=== PATIENT | male | born 1995 | race American Indian/Alaskan Native ===

== ENCOUNTER 2020-07-24 16:15 | Emergency (ER) | payer SELFPAY ==
[2020-07-24 16:27] VITALS: BP 118/88
--- NOTE | 2020-07-24 16:31 | Emergency Department Report ---
Blank Doc - Documentation Documentation: 25-year-old male that presents with abdominal pain with n/.v This initial assessment/diagnostic orders/clinical plan/treatment(s) is/are subject to change based on patient's health status, clinical progression and re- assessment by fellow clinical providers in the ED. Further treatment and workup at subsequent clinical providers discretion. Patient/guardians urged not to elope from the ED as their condition may be serious if not clinically assessed and managed. Initial orders include: 1- Patient sent to [facility] for further evaluation and treatment 2- labs 3- UA
[2020-07-24 17:16] LABS: Basophils # (Auto) 0.1 K/mm3 (0.0-0.1); Basophils % (Auto) 1.7 % (0.0-1.8); Eosinophils # (Auto) 0.2 K/mm3 (0.0-0.4); Eosinophils % (Auto) 3.6 % (0.0-4.3); Hematocrit 46.1 % (35.5-45.6); Hemoglobin 15.6 gm/dl (11.8-15.2); Lymphocytes # (Auto) 1.8 K/mm3 (1.2-5.4); Lymphocytes % (Auto) 38.1 % (13.4-35.0); Mean Corpuscular HGB Conc 34 % (32-34); Mean Corpuscular Volume 94 fl (84-94); Monocytes # (Auto) 0.4 K/mm3 (0.0-0.8); Monocytes % (Auto) 8.9 % (0.0-7.3); Platelet Count 331 K/mm3 (140-440); Red Blood Count 4.91 M/mm3 (3.65-5.03); Red Cell Distribution Width 13.7 % (13.2-15.2)
[2020-07-24 17:40] LABS: Alanine Aminotransferase 15 units/L (7-56); Albumin 4.7 g/dL (3.9-5); BUN/Creatinine Ratio 11; Blood Urea Nitrogen 9 mg/dL (9-20); Hemolysis Index 19
--- NOTE | 2020-07-25 00:04 | XRay Report ---
CHEST PA AND LATERAL VIEWS INDICATION: MAIN. COMPARISON: None FINDINGS: Support devices: None Heart: Normal Lungs/Pleura: No acute pulmonary or pleural findings. IMPRESSION: 1. No significant abnormality. Signer Name: Kyle Juarez MD Signed: 07/25/2020 12:00 AM Workstation Name: [id number]
[2020-07-25] MEDS ORDERED: SODIUM CHLORIDE 0.9% 1000 ML 1,000 ML IV ONE (00:24)
--- NOTE | 2020-07-25 00:27 | Emergency Department Report ---
ED N/V/D HPI - General Chief complaint: Nausea/Vomiting/Diarrhea Stated complaint: ABD PAIN/VOMITING/FATIGUE PUI?: No Time Seen by Provider: 07/24/20 16:23 Source: patient Mode of arrival: Ambulatory Limitations: No Limitations - History of Present Illness Initial comments: Patient is a 25-year-old male who presents emergency room with multiple complaints. Patient complains of headache, abdominal pain, shortness of breath, fatigue, poor appetite, nausea and vomiting. Patient states he has not had any food down for 1 week. Patient states his symptoms started a week ago. Patient states his symptoms are worsening. Patient has vomitus. Patient a recent bowel movement. Patient states he has not been able to eat or drink so he can have a bowel movement. Patient states his abdominal pain is a 6 out of 10. He states is worse with movement or vomiting and palpation. Patient states his abdominal pain is better with rest. Patient states his fatigue is worsening. Patient states he is see any other health care provider for these problems. Patient denies fever and chills. Patient denies dysuria. Patient denies chest pain. Patient states that his shortness of breath has resolved. Patient denies recent travel. Patient denies recent international travel. Patient denies exposure to the novel coronavirus. Patient denies sick contacts. Patient denies fever and chills. Patient denies cough. Patient denies diarrhea. Patient denies coming in contact with anybody with symptoms of the novel coronavirus. MD complaint: nausea, vomiting, abdominal pain -: Sudden Description of Vomiting: food contents, watery Associated Abdominal Pain: Yes Location: diffuse Radiation: none Severity: severe Pain Scale: 6 Quality: stabbing, aching Consistency: constant Improves with: rest Worsens with: vomiting, movement Associated Symptoms: headaches, loss of appetite, malaise, nausea/vomiting. denies: myalgias, chest pain, cough, diaphoresis, fever/chills - Related Data Previous Rx's Medication Instructions Recorded Last Taken Type Ciprofloxacin HCl [Ciprofloxacin 500 mg PO Q12HR 10 Days #20 tab 07/25/20 Unknown Rx TAB] Ondansetron [Zofran Odt] 4 mg PO Q6HR PRN #25 tab.rapdis 07/25/20 Unknown Rx Allergies Allergy/AdvReac Type Severity Reaction Status Date / Time No Known Allergies Allergy Unverified 07/24/20 16:27 ED Review of Systems ROS: Stated complaint: ABD PAIN/VOMITING/FATIGUE Other details as noted in HPI Constitutional: malaise. denies: chills, fever Eyes: denies: eye pain, eye discharge, vision change ENT: denies: ear pain, throat pain Respiratory: shortness of breath. denies: cough, wheezing Cardiovascular: denies: chest pain, palpitations Endocrine: no symptoms reported Gastrointestinal: abdominal pain, nausea, vomiting, constipation. denies: diarr hea Genitourinary: denies: urgency, dysuria Musculoskeletal: denies: back pain, joint swelling, arthralgia Skin: denies: rash, lesions Neurological: headache. denies: weakness, paresthesias Psychiatric: denies: anxiety, depression Hematological/Lymphatic: denies: easy bleeding, easy bruising ED Past Medical Hx - Past Medical History Previous Medical History?: No - Surgical History Past Surgical History?: No - Family History Family history: no significant - Social History Smoking Status: Never Smoker Substance Use Type: None - Medications Home Medications: Home Medications Medication Instructions Recorded Confirmed Last Taken Type Ciprofloxacin HCl [Ciprofloxacin 500 mg PO Q12HR 10 Days #20 tab 07/25/20 Unknown Rx TAB] Ondansetron [Zofran Odt] 4 mg PO Q6HR PRN #25 tab.rapdis 07/25/20 Unknown Rx ED Physical Exam - General Limitations: No Limitations General appearance: alert, in no apparent distress - Head Head exam: Present: atraumatic, normocephalic - Eye Eye exam: Present: normal appearance - ENT ENT exam: Present: mucous membranes moist - Neck Neck exam: Present: normal inspection - Respiratory Respiratory exam: Present: normal lung sounds bilaterally. Absent: respiratory distress - Cardiovascular Cardiovascular Exam: Present: regular rate, normal rhythm. Absent: systolic murmur, diastolic murmur, rubs, gallop - GI/Abdominal GI/Abdominal exam: Present: soft, tenderness, normal bowel sounds - Rectal Rectal exam: Present: deferred - Extremities Exam Extremities exam: Present: normal inspection - Back Exam Back exam: Present: normal inspection - Neurological Exam Neurological exam: Present: alert, oriented X3 - Psychiatric Psychiatric exam: Present: normal affect, normal mood - Skin Skin exam: Present: warm, dry, intact, normal color. Absent: rash ED Course Vital Signs 07/24/20 16:25 Temperature 98.3 F Pulse Rate 66 Respiratory 18 Rate Blood Pressure 118/88 O2 Sat by Pulse 98 Oximetry - Reevaluation(s) Reevaluation #1: I discussed all results and clinical findings with patient. I discussed plan of care with patient. Patient agrees with plan of care. Patient is stable for discharge. Patient will be discharged home. Patient given discharge instructions. Patient voiced understanding of discharge instructions. 07/25/20 02:21 ED Medical Decision Making - Lab Data Result diagrams: 07/24/20 16:40 07/24/20 16:40 - Radiology Data Radiology results: report reviewed, image reviewed interpreted by me: Chest x-ray: No pneumonia, no pneumothorax, no foreign body, no osseous findings, no acute findings CHEST PA AND LATERAL VIEWS INDICATION: MAIN. COMPARISON: None FINDINGS: Support devices: None Heart: Normal Lungs/Pleura: No acute pulmonary or pleural findings. IMPRESSION: 1. No significant abnormality. CT abdomen pelvis w con INDICATION: n/v.abd pain. TECHNIQUE: All CT scans at this location are performed using CT dose reduction for ALARA by means of automated exposure control. COMPARISON: None FINDINGS: Lung bases are clear of acute disease. Liver, gallbladder, spleen, pancreas, kidneys and adrenals appear negative. Abdominal aorta is normal in size. Pelvis Appendix cannot be identified, but there is no pericecal edema. Urinary bladder is normal. No free fluid or inflammation. No significant bowel abnormalities. IMPRESSION: 1. No acute abnormalities. - Medical Decision Making Patient is a 25-year-old male presents emergency room with complaints nausea, vomiting, abdominal pain, shortness of breath, headache, poor appetite. Patient shortness of breath resolved prior to initial evaluation. Patient had a chest x-ray which was negative. Patient had labs done which were unremarkable except for UTI.. Patient had a CT scan of the abdomen which was negative for acute finding. Patient clinical findings are consistent with gastroenteritis pattern UTI. Patient stable for discharge. Patient discharged home. Patient given fluids and antibiotics in the ER. Patient stated he felt better after the fluids and antibiotics. - Differential Diagnosis Abdominal pain, nausea, vomiting, gastroenteritis, UTI, Critical care attestation.: If time is entered above; I have spent that time in minutes in the direct care of this critically ill patient, excluding procedure time. ED Disposition Clinical Impression: Gastroenteritis Abdominal pain Qualifiers: Abdominal location: generalized Qualified Code(s): R10.84 - Generalized abdominal pain Nausea & vomiting Qualifiers: Vomiting type: unspecified Vomiting Intractability: non-intractable Qualified Code(s): R11.2 - Nausea with vomiting, unspecified UTI (urinary tract infection) Qualifiers: Urinary tract infection type: acute cystitis Hematuria presence: with hematuria Qualified Code(s): N30.01 - Acute cystitis with hematuria Disposition: TO HOME OR SELFCARE Is pt being admited?: No Does the pt Need Aspirin: No Condition: Stable Instructions: Traveler's Diarrhea (ED), Urinary Tract Infection in Men (ED), Gastroenteritis (ED), Acute Nausea and Vomiting (ED) Additional Instructions: Patient to follow-up with primary care in 2 to 3 days. Patient to rest. Patient to increase water. Patient to eat a brat diet. Patient to take Tylenol or ibuprofen as needed for pain. Patient to take meds as directed. Patient to return to the ER if condition worsens, changes or new symptoms arise. Prescriptions: Ciprofloxacin HCl [Ciprofloxacin TAB] 500 mg PO Q12HR 10 Days #20 tab Ondansetron [Zofran Odt] 4 mg PO Q6HR PRN #25 tab.rapdis PRN Reason: Nausea And Vomiting Referrals: PRIMARY CARE, [Primary Care Provider] - 2-3 Days Time of Disposition: 02:38
[2020-07-25 01:18] LABS: Bilirubin,Urine NEG (Negative); Blood,Urine NEG (Negative); Color,Urine Yellow (Yellow); Mucus,Urine 3+ /HPF; Urobilinogen,Urine < 2.0 mg/dL (<2.0)
--- NOTE | 2020-07-25 02:02 | Cat Scan Report ---
CT abdomen pelvis w con INDICATION: n/v.abd pain. TECHNIQUE: All CT scans at this location are performed using CT dose reduction for ALARA by means of automated e xposure control. COMPARISON: None FINDINGS: Lung bases are clear of acute disease. Liver, gallbladder, spleen, pancreas, kidneys and adrenals melinda ear negative. Abdominal aorta is normal in size. Pelvis Appendix cannot be identified, but there is no pericecal edema. Urinary bladder is normal. No free fl uid or inflammation. No significant bowel abnormalities. IMPRESSION: 1. No acute abnormalities. Signer Name: Kyle Juarez MD Signed: 07/25/2020 1:57 AM Workstation Name: [id number]
[2020-07-25] MEDS ORDERED: cefTRIAXone/NS 1 GM/50 ML 1 GM/50 ML BAG IV ONE (02:35)
== END 2020-07-25 04:45 | disposition home or self-care (01) ==
LOC: ED 16:15
DX: K52.9 Noninfective gastroenteritis and colitis, unspecified (principal); N39.0 Urinary tract infection, site not specified; Z79.899 Other long term (current) drug therapy
CPT/HCPCS: 36415; 71046; 74177; 80053; 81001; 83690; 85025; 87086; 96361; 96365; 99284; J0696; J7030; Q9967